=== PATIENT | male | born 1995 | race African-American/Black ===

== ENCOUNTER 2019-06-07 18:17 | Emergency (ER) | payer SELFPAY ==
[~2019-06-07] VITALS: Ht 170.2 cm; Wt 67.3 kg
[2019-06-07 18:39] VITALS: TEMP 98.3
[2019-06-08 02:13] LABS: ALBUMIN 4.9 gm/dL (3.5-5.0); BASO % 0.6 % (0.0-2.0); BILIRUBIN,TOTAL 0.9 mg/dL (0.0-1.0); C-REACTIVE PROTEIN 0.9 mg/dL (0.0-0.9); CALCIUM 9.5 mg/dL (8.4-10.2); CREATININE, serum 0.86 (0.66-1.25); EOS # 0.1 (0.0-0.7); EOS % 0.9 % (0-4.0); ERYTHROCYTE SEDIMENTATION RATE 18 mm/hr (0-15); GRAN # 3.3 (1.4-6.5); GRAN % 49.8 % (42.2-75.2); HEMATOCRIT 44.2 % (42.0-52.0); HEMOGLOBIN 14.6 g/dl (13.5-18.0); LYMPH # 2.6 (1.2-3.4); MEAN CELL VOLUME 92 fl (80.0-100.0); MEAN CORPUSCULAR HEMOGLOBIN 30 pg (27.0-31.0); MEAN CORPUSCULAR HGB CONC 33 g/dl (33.0-37.0); MEAN PLATELET VOLUME 8.9 fl (7.4-10.4); MONO # 0.6 (0.1-0.6); MONO % 9.4 % (1.7-9.3); PLATELET COUNT 529 K/mm3 (130-400); POTASSIUM 3.8 mmol/L (3.4-5.0); REDCELL DISTRIBUTION WIDTH-CV 12.7 % (11.5-14.5); TOTAL PROTEIN 8.9 gm/dL (6.4-8.2)
[2019-06-08] MEDS ORDERED: ANUSOL-HC SUPPO25 MG RC (02:19)
[2019-06-08 02:54] VITALS: BP 131/88; PULSE 79
== END 2019-06-08 02:54 | disposition home or self-care (01) ==
LOC: COL.ER 18:17
PROVIDERS: Emergency Medicine
DX: K64.8 Other hemorrhoids (principal); Z87.891 Personal history of nicotine dependence
CPT/HCPCS: C9113; J2405; J7030

== ENCOUNTER 2020-05-12 19:00 | Emergency (ER) | payer SELFPAY ==
[~2020-05-12] VITALS: Ht 170.2 cm; Wt 68.2 kg
[~2020-05-12 19:00] MED LIST: ANUSOL-HC SUPPO25 MG RC
[2020-05-12 19:07] VITALS: TEMP 97.6
[2020-05-12] MEDS ORDERED: DITROPAN 5MG TAB5 MG PO (19:14)
[2020-05-12 19:52] LABS: ARTERIAL BLD GAS TCO2 CT 25.5; ARTERIAL BLOOD GAS BASE EXCESS -0.5 (-2-2); ARTERIAL BLOOD GAS HCO3 24.2 meq/L (22-26); ARTERIAL BLOOD GAS PCO2 40.4 mmHg (35-45); ARTERIAL BLOOD GAS PO2 88.9 mmHg (80-100)
[2020-05-12 22:06] VITALS: BP 120/73; PULSE 79
== END 2020-05-12 22:10 | disposition home or self-care (01) ==
LOC: COL.ER 19:00
PROVIDERS: Emergency Medicine
DX: T65.94XA Toxic effect of unspecified substance, undetermined, initial encounter (principal); R51 Headache; J02.9 Acute pharyngitis, unspecified; Z87.891 Personal history of nicotine dependence

== ENCOUNTER 2021-04-12 19:57 | Emergency (ER) | payer BC ==
[~2021-04-12] VITALS: Ht 170.2 cm; Wt 68.2 kg
[~2021-04-12 19:57] MED LIST changes: +DITROPAN 5MG TAB5 MG PO
[2021-04-12 20:51] LABS: ALANINE AMINOTRANSFERASE 70 U/L (4-49); ALBUMIN 3.7 gm/dL (3.5-5.0); ALKALINE PHOSPHATASE 47 U/L (50-136); ANION GAP 4 mmol/L (7-16); AST,SGOT 100 U/L (15-37); BILIRUBIN,TOTAL 0.2 mg/dL (0.0-1.0); BLOOD UREA NITROGEN 9 mg/dL (9-20); CALCIUM 8.8 mg/dL (8.4-10.2); CARBON DIOXIDE 31 mmol/L (22-30); CHLORIDE 101 mmol/L (98-107); CREATININE, serum 0.83 (0.66-1.25); GLUCOSE 94 mg/dL (74-106); HEMATOCRIT 39.7 % (42.0-52.0); HEMOGLOBIN 13.2 g/dl (13.5-18.0); LIPASE 266 U/L (23-300); MEAN CELL VOLUME 90 fl (80.0-100.0); MEAN CORPUSCULAR HEMOGLOBIN 30 pg (27.0-31.0); MEAN CORPUSCULAR HGB CONC 33 g/dl (33.0-37.0); MEAN PLATELET VOLUME 10.5 fl (7.4-10.4); PLATELET COUNT 160 K/mm3 (130-400); POTASSIUM 3.5 mmol/L (3.4-5.0); RED BLOOD COUNT 4.42 M/mm3 (4.20-5.60); REDCELL DISTRIBUTION WIDTH-CV 12.6 % (11.5-14.5); SODIUM 136 mmol/L (137-145); TOTAL PROTEIN 6.9 gm/dL (6.4-8.2)
[2021-04-12 20:53] LABS: C-REACTIVE PROTEIN < 0.5 mg/dL (0.0-0.9)
[2021-04-12 21:14] LABS: COLLECTION METHOD CLEAN CATCH
[2021-04-12 21:30] LABS: MUCOUS Present /lpf; PH 6 (5-8); SQUAMOUS EPITHELIAL None Seen /hpf; URINE APPEARANCE Clear; URINE BACTERIA None Seen /hpf; URINE BILIRUBIN Negative (NEGATIVE); URINE BLOOD 1+ (NEGATIVE); URINE COLOR Yellow; URINE GLUCOSE Negative (NEGATIVE); URINE KETONE Trace (NEGATIVE); URINE LEUKOCYTE ESTERASE Negative (NEGATIVE); URINE NITRATE Negative (NEGATIVE); URINE PROTEIN(semi-quant) Negative (NEGATIVE); URINE UROBILINOGEN Negative (NEGATIVE)
[2021-04-12 22:03] LABS: BAND 19 % (0-10); LYMPHOCYTE 29 % (20.0-51.0); NEUTROPHILS 43 % (42.0-75.2)
[2021-04-12 22:04] LABS: PLATELET ESTIMATE NORMAL (NORMAL)
[2021-04-13] MEDS ORDERED: ZOFRAN ODT4 MG PO (00:17)
[2021-04-13 01:20] VITALS: BP 132/78; PULSE 78; TEMP 98.4
== END 2021-04-13 01:30 | disposition home or self-care (01) ==
LOC: COL.ER 19:57
PROVIDERS: Nurse Practitioner Primary Care
DX: K52.9 Noninfective gastroenteritis and colitis, unspecified (principal)
CPT/HCPCS: J2405; J7030; Q9967